=== PATIENT | male | born 1965 | race Caucasian/White ===

== ENCOUNTER 2019-11-14 13:19 | Outpatient (CLI) | payer OTHER ==
[~2019-11-14 13:19] MED LIST: CIPRO500 MG PO; FLAGYL500MG PO; PROTONIX40 MG PO; SYNTHROID50 MCG PO; TAMS0.4C PO
== END 2019-11-14 13:27 | disposition home or self-care (01) ==
LOC: TOM 13:19
DX: M54.5 Low back pain (principal)